=== PATIENT | female | born 1990 | race Caucasian/White ===

== ENCOUNTER 2021-01-22 08:25 | Outpatient (CLI) | payer OTHER, SELFPAY ==
--- NOTE | ~2021-01-22 | US_ITS ---
EXAMINATION: US abdomen complete DATE: 01/22/2021 09:05 INDICATION: Diffuse abdominal pain TECHNIQUE: Multiple grayscale and Doppler ultrasound images of the abdomen were obtained. COMPARISON: None available FINDINGS: Bowel gas obscures visualization of the pancreas. The visualized portions of the pancreas a re unremarkable. The liver demonstrates increased echogenicity, heterogenous echotexture, and decreas ed through transmission. No surface nodularity. Normal hepatopetal flow in the main portal vein. The gallbladder is normal with no abnormal wall thickening, pericholecystic fluid or stones. The normal c ommon bile duct measures 4 mm. There was no sonographic Cook sign. The visualized portions of the a kenneth and inferior vena cava are normal. The right kidney measures 11.2 x 5.7 x 6.0 cm. The left kidney measures 11.8 x 5.3 x 5.9 cm. The kidn eys demonstrate normal parenchymal echogenicity. There is no hydronephrosis. The spleen is normal in appearance and measures 12.7 cm. IMPRESSION: 1. No sonographic correlate for the patient's symptoms. Reviewed, dictated and finalized at location A.
== END 2021-01-22 08:26 | disposition home or self-care (01) ==
LOC: CHSIMG 08:27
PROVIDERS: PCP Internal Medicine; Visit Provider Nurse Practitioner Family
DX: R10.9 Unspecified abdominal pain (principal)
CPT/HCPCS: 76700

== ENCOUNTER 2021-06-01 12:43 | Emergency (ER) | payer OTHER, SELFPAY ==
[2021-06-01 12:52] VITALS: BP 146/66; PULSE 63; RESP 16; TEMP 37.2; O2SAT 98
--- NOTE | 2021-06-01 13:16 | ED.SKABFB ---
HPI - Skin/Abscess/Foreign Bdy General Chief complaint: Skin/Abscess/Foreign Body Stated complaint: Rash Time Seen by Provider: 06/01/21 13:16 Source: patient and RN notes reviewed Mode of arrival: ambulatory Limitations: no limitations History of Present Illness HPI narrative: 31 year old female presents with concern for an itchy rash under her chin. SHe reports her nephew had a similar rash. She reports a small amount of frainage fromt he rash. She denies swollen lips, tongue, or trouble breathing. MD complaint: rash Related Data Home Medications Medication Instructions Recorded Confirmed famotidine 20 mg PO TID 06/01/21 06/01/21 loratadine [Claritin] 10 mg PO DAILY 06/01/21 06/01/21 Allergies Allergy/AdvReac Type Severity Reaction Status Date / Time No Known Allergies Allergy Verified 06/01/21 13:01 Review of Systems Review of Systems: CONSTITUTIONAL: Denies malaise, chills, sweats, or fever. EYES: Denies redness, or discharge. ENT: Denies rhinorrhea, congestion, swollen lips, swollen tongue CARDIOVASCULAR: Denies chest pain, palpitations, or edema. RESPIRATORY: Denies cough or dyspnea. GASTROINTESTINAL: Denies abdominal pain, nausea, vomiting SKIN: Reports itchy rash MUSCULOSKELETAL: Denies joint painor myalgia. NEUROLOGIC: Denies headache. All systems reviewed & are unremarkable except as noted in HPI and below PMFSH Comments At time of signature, agree with nursing past medical, surgical, social and family history. There is no relevant family history pertinent to the presenting complaint Exam Narrative: GENERAL: Well-appearing, well-nourished, and in no acute distress. HEAD: Normocephalic, atraumatic. EYES: PERRLA, conjunctivae clear, and EOMI. ENT: Mucous membranes moist. Oropharynx without edema, erythema or lesions. NECK: Supple. No lymphadenopathy CHEST: Clear to auscultation. No respiratory distress. HEART: Regular rate and rhythm. SKIN: Warm, dry. Vesicular rash noted under the chin with honey colored crust, approximately 3cm in diameter NEURO: Alert and oriented x3. PSYCH: Normal mood and affect Course Course Emergency Course: Patient is aware of diagnosis, understands and agrees to treatment plan. Anticipatory guidance given. Patient agrees to follow-up as directed and is aware of reasons to seek care at the emergency department. Portions of this record may have been created with voice recognition software Level of Care: Express Care Visit Vital Signs Vital signs: Vital Signs Temperature 98.9 F 06/01/21 12:52 Pulse Rate 63 06/01/21 12:52 Respiratory Rate 16 06/01/21 12:52 Blood Pressure 146/66 H 06/01/21 12:52 Pulse Oximetry 98 06/01/21 12:52 Temperature 98.9 F 06/01/21 12:52 Pulse Rate 63 06/01/21 12:52 Respiratory Rate 16 06/01/21 12:52 Blood Pressure 146/66 H 06/01/21 12:52 Pulse Oximetry 98 06/01/21 12:52 Reviewed. MDM - Skin/Abscess/Foreign Bdy MDM Narrative Medical decision making narrative: Does not appear at this time to be erythema multiforme, bullous, SJS, TEN; no evidence at this time to suggest RMSF, endocarditis or Lyme disease; patient looks well, nontoxic and is tolerating oral intake; no neurologic signs or symptoms; no headache, photophobia or neck pain; afebrile; appropriate for initial outpatient treatment; discussed the importance of follow-up, patient agrees; question, viral exanthema, contact dermatitis, allergic dermatitis, eczema, urticaria, impetigo. No soft palate or uvula edema, no tongue, lip edema or other mucosal involvement, no respiratory compromise, no stridor, no wheezing, no wheezing, no history of syncope, no hypotension, no nausea, vomiting, or diarrhea. Instructed patient to go to nearest ER immediately for any worsening symptoms including but not limited to: fever, spreading rash, pain, sore throat, headache, dizziness, chest pain, trouble breathing, or any symptoms concerning to the patient. Critical Care T
== END 2021-06-01 13:27 | disposition home or self-care (01) ==
PROVIDERS: Emergency Provider Nurse Practitioner; PCP Internal Medicine
DX: L01.00 Impetigo, unspecified (principal); J45.909 Unspecified asthma, uncomplicated; J21.9 Acute bronchiolitis, unspecified
CPT/HCPCS: 99213; G0463

== ENCOUNTER 2022-08-25 14:43 | Emergency (ER) | payer OTHER, SELFPAY ==
[2022-08-25 15:49] VITALS: BP 128/79; PULSE 63; RESP 20; TEMP 36.7; O2SAT 99
--- NOTE | 2022-08-25 18:53 | ED.GENADULT ---
HPI - General Adult General Chief complaint: Unspecified Stated complaint: can't sleep for few days Time Seen by Provider: 08/25/22 18:22 History of Present Illness HPI narrative: 32-year-old female here with her mother due to concerns of her bizarre behavior for the past several days. Patient states that she has been going through a lot mentally as one of her friends aunts committed suicide. States that she took this very hard and has had difficulty sleeping over the past 3 days. Reports sleeping maybe 2 or 3 hours of the past 3 days. Patient states she has no medical complaints aside from insomnia but her mother states she has been acting bizarrely. She has been talking to strangers in the waiting room and went into their neighbors yard to rake leaves in the middle of the night. Patient remembers these events and states that she just wanted to keep her hands busy at nighttime because she could not sleep. She denies any suicidal or homicidal ideation. She does not take any medicines on a daily basis. Reports to reports drinking occasional alcohol and marijuana use. Related Data Home Medications Medication Instructions Recorded Confirmed famotidine 20 mg tablet 20 mg PO TID 06/01/21 06/01/21 loratadine 10 mg tablet (Claritin) 10 mg PO DAILY 06/01/21 06/01/21 Allergies Allergy/AdvReac Type Severity Reaction Status Date / Time No Known Allergies Allergy Verified 06/01/21 13:01 Review of Systems Review of Systems: Gen.: Denies fevers or chills Eyes: Denies eye pain or visual change ENT: Denies congestion Respiratory: Denies shortness of breath or cough CV: Denies chest pain or palpitations GI: Denies abdominal pain nausea, emesis or diarrhea denies burning, urgency, frequency or hematuria Musculoskeletal: Denies back pain or muscle pain Neuro: Denies numbness, tingling, weakness or focal weakness Skin: Denies rash Except as documented, all other systems reviewed and negative Exam Narrative: APPEARANCE: Well appearing, no pain in distress, well-nourished. Head: Normocephalic and atraumatic. EYES: PERRLA/EOMI, conjunctivae clear NOSE: No nasal drainage EARS: External ear normal in appearance THROAT: Oropharynx is clear. Mucous membranes are moist. NECK: Supple. No adenopathy, no masses. RESPIRATORY: Airway patent, respirations nonlabored. Clear to auscultation bilaterally, no rales, rhonchi, wheezing. CARDIOVASCULAR: Regular rate and rhythm without murmurs, rubs, or gallops. ABDOMINAL: Normoactive bowel sounds. Soft, nontender, nondistended. No rebound tenderness or guarding. MUSCULOSKELETAL: Extremities are warm and well-perfused. Moves all extremities well. No edema. NEURO: Normal speech. No focal neurologic deficits. SKIN: Skin is warm and dry. No rashes. PSYCHIATRIC: Normal affect/mood.. Course Vital Signs Vital signs: Vital Signs Temperature 98.1 F 08/25/22 15:49 Pulse Rate 63 08/25/22 15:49 Respiratory Rate 20 08/25/22 15:49 Blood Pressure 128/79 08/25/22 15:49 Pulse Oximetry 99 08/25/22 15:49 Oxygen Delivery Room Air 08/25/22 15:49 Temperature 98.1 F 08/25/22 15:49 Pulse Rate 63 08/25/22 15:49 Respiratory Rate 20 08/25/22 15:49 Blood Pressure 128/79 08/25/22 15:49 Pulse Oximetry 99 08/25/22 15:49 Oxygen Delivery Room Air 08/25/22 15:49 Medical Decision Making MDM Narrative Medical decision making narrative: 32-year-old female here with her mother for concerns about bizarre behavior over the past several days. Patient has not been sleeping, has been exhibiting bizarre behaviors. Lab work without any metabolic disturbances. Her TSH is normal. Urine drug screen positive for cannabinoids. She is medically clear for crisis evaluation. Crisis came on to evaluate patient who agree with my assessment that this is likely a stress reaction over an acute psychiatric illness. There is no indication for inpatient psychiatric admission at this time. Will be di
[2022-08-25 19:29] LABS: Appearance Urine Cloudy (Clear); Bacteria Urine None Seen /hpf; Bilirubin Urine Negative (Negative); Blood Urine Negative (Negative); Color Urine Yellow (Yellow); Glucose Urine UA Negative (Negative); Ketones Urine 2+ mg/dL (Negative); Leukocyte Esterase Ur Negative LEU/UL (Negative); Nitrate Urine Negative (Negative); Non Pathogenic Casts 0-2; Protein Urine Negative (Negative); Specific Grav Ur 1.016 (1.001-1.035); Squamous Epithelial Cell Urine None seen /hpf (Few); WBC Urine 0-5 /hpf; pH Urine 5.5 (5.0-9.0)
[2022-08-25 19:33] LABS: Basophils Absolute Auto 0.1 K/mm3 (0.0-0.1); Basophils Percent Auto 0.7 % (0.2-1.2); Eosinophils Absolute Auto 0.4 K/mm3 (0-0.3); Eosinophils Percent Auto 4.4 % (0-4.4); Hematocrit 40.6 % (37.0-47.0); Hemoglobin 13.3 g/dL (12.0-15.0); Immature Granulocyte Absolute 0.02 K/mm3 (0.00-0.031); Immature Granulocyte Percent A 0.2 % (0-0.5); Lymphocytes Absolute Auto 2.79 K/mm3 (0.9-3.2); Lymphocytes Percent Auto 30.7 % (18.3-44.2); Mean Corpuscular HGB Conc 32.8 g/dl (32-36); Mean Corpuscular Hemoglobin 30.4 pg (26-34); Mean Corpuscular Volume 92.9 fl (80-100); Monocytes Absolute Auto 0.8 K/mm3 (0.1-0.6); Monocytes Percent Auto 8.4 % (2.6-8.5); Neutrophils Absolute Auto 5.1 K/mm3 (1.3-6.7); Neutrophils Percent Auto 55.6 % (45.5-73.1); Platelet Count Result 205 k/mm3 (150-375); Red Blood Count 4.37 M/mm3 (4.2-5.4); Red Cell Distribution Width 12.9 % (11.5-14.5); White Blood Count 9.1 K/mm3 (4.5-10.0)
[2022-08-25 19:35] LABS: Add Urine Microscopic? YES
[2022-08-25 19:39] LABS: Amphetamine Screen Urine Negative (Negative); Barbiturate Screen Urine Negative (Negative); Benzodiazepines Screen Urine Negative (Negative); Cannabinoid Screen Urine Positive (Negative); Cocaine Screen Urine Negative (Negative); Methadone Screen Urine Negative (Negative); Opiate Screen Urine Negative (Negative); Phencyclidine Screen Urine Negative (Negative)
[2022-08-25 19:42] LABS: Alanine Aminotransferase 12 U/L (6-35); Albumin Level 4.1 g/dL (3.5-5.1); Alkaline Phosphatase 32 U/L (38-126); Anion Gap 9 mmol/L (8-16); Aspartate Amino Transferase 30 U/L (14-36); Blood Urea Nitrogen 9 mg/dL (7-17); Carbon Dioxide 26 mmol/L (22-30); Chloride 103 mmol/L (98-107); Estimated CRCL calculation 128 ml/min; Estimated Glomerular Filt Rate > 60; Glucose 104 mg/dL (65-110); Potassium 3.1 mmol/L (3.4-5.0); Sodium 138 mmol/L (137-145)
[2022-08-25 19:43] LABS: Acetaminophen < 10 ug/mL (10-30); Ethanol < 10 mg/dL (<10)
[2022-08-25 20:03] LABS: SARS-CoV-2 RNA PCR Negative
[2022-08-25 20:13] LABS: Thyroid Stimulating Hormone 0.605 uIU/mL (0.465-4.680)
--- NOTE | 2022-08-25 21:01 | PC.NURSE ---
crisis called to evaluate patient
[2022-08-25] MEDS: diphenhydrAMINE HCl CAP 25 MG CAPSULE 50 MG PO (22:42)
== END 2022-08-25 22:45 | disposition home or self-care (01) ==
PROVIDERS: Emergency Provider Physician Assistant; PCP Internal Medicine
DX: F43.25 Adjustment disorder with mixed disturbance of emotions and conduct (principal); Z20.822 Contact with and (suspected) exposure to COVID-19; Z79.899 Other long term (current) drug therapy
CPT/HCPCS: 36415; 80053; 80307; 81001; 81025; 83735; 84443; 85025; 99281; A9270; U0003; U0005

== ENCOUNTER 2022-10-03 10:01 | Outpatient (CLI) | payer OTHER, SELFPAY ==
--- NOTE | ~2022-10-03 | XR_ITS ---
Lumbosacral Spine: AP and lateral views Clinical History: Pain Findings: The normal lordotic curve is maintained. The vertebral bodies and posterior elements are i ntact. The intervertebral disc spaces are preserved. The sacroiliac joints are normally outlined. Impression: No significant abnormality. Reviewed, dictated and finalized at [facility]. Impression: No significant abnormality.
--- NOTE | ~2022-10-03 | XR_ITS ---
AP and lateral views of the right hip Clinical history: Pain Findings: No acute fracture or dislocation is seen. Osseous alignment is anatomic. The right hip join t and right SI joint are preserved. Soft tissues are unremarkable. Impression: No significant abnormality is seen. Reviewed, dictated and finalized at location . Impression: No significant abnormality is seen.
== END 2022-10-03 10:02 | disposition home or self-care (01) ==
LOC: CHSIMG 10:03
PROVIDERS: PCP Internal Medicine; Visit Provider Internal Medicine
DX: M54.50 Low back pain, unspecified (principal); M25.551 Pain in right hip
CPT/HCPCS: 72100; 73502